=== PATIENT | female | born 1995 | race Caucasian/White ===

== ENCOUNTER 2024-09-19 09:42 | Outpatient (AMB) | payer BC, SELFPAY ==
--- NOTE | 2024-09-19 09:53 | A.OFFPC_ITS ---
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 1. Little interest or pleasure in doing things: not at all 2. Feeling down, depressed, or hopeless: not at all 3. Trouble falling or staying asleep, or sleeping too much: not at all 4. Feeling tired or having little energy: not at all 5. Poor appetite or overeating: not at all 6. Feeling bad about yourself - or that you are a failure or have let yourself or your family down: not at all 7. Trouble concentrating on things, such as reading the newspaper or watching television: not at all 8. Moving or speaking so slowly that other people could have noticed. Or the opposite - being so fidgety or restless that you have been moving around a lot more than usual: not at all 9. Thoughts that you would be better off or of hurting yourself in some way: not at all Total score: 0 Depression Screening Interpretation: Negative Depression Screening Done: Yes 22329 - PHQ-9 Billing: Yes Source: Developed by Drs. Sai Carranza, Sweta Branham, Yemi Beyer and colleagues, with an educational steve from [employer]. Thrive Questionnaire Date Thrive assessed: 09/19/24 I am a: Patient What is your living situation today?: I have a steady place to live Within the past 12 months, did the food you bought not last and you didn't have the money to get more?: I choose not to answer this question Within the past 12 months, did you worry whether your food would run out before you got money to buy more?: I choose not to answer this question Do you have trouble paying for medicines?: I choose not to answer this question Do you have trouble getting transportation to medical appointments?: I choose not to answer this question Do you have trouble paying your heating and electricity bill?: I choose not to answer this question Do you have trouble taking care of your child, family member or friend?: I choose not to answer this question Do you have trouble with day-to-day activities such as bathing, preparing meals, shopping, managing finances, etc.?: I choose not to answer this question Are you currently unemployed and looking for a job?: I choose not to answer this question Are you interested in more education?: I choose not to answer this question Please select the resources that you would like help with: None Currently or been in a relationship where the following occur: No concerns reported THRIVE Score: 0 AUDIT C Alcohol Use Questionnaire (AUDIT-C) 1. How often do you have a drink containing alcohol?: Monthly or less 2. How many drinks containing alcohol do you have on a typical day when you are drinking?: 1 or 2 3. How often do you have six or more drinks on one occasion?: Never Total Score: 1 KODY-7 AMB Questionnaire KODY-7 Date KODY - 7 assessed: 09/19/24 Feeling nervous, anxious, or on edge: 0 = Not at all Not being able to stop or control worryin = Not at all Worrying too much about different things: 0 = Not at all Trouble relaxin = Not at all Being so restless that it is hard to sit still: 0 = Not at all Becoming easily annoyed or irritable: 0 = Not at all Feeling afraid as if something awful might happen: 0 = Not at all Total KODY-7 score (0-4 normal; 5-9 mild; 10-14 moderate; 15-21 severe): 0 Source: Developed by Drs. Sai Carranza, Sweta Branham, Yemi Beyer and colleagues, with an educational steve from [employer]. KODY-7 Assessment Billing KODY-7 Assessment Tool: KODY-7 Assessment 09489 Physical exam (Primary Care) Depression Screening Interpretation: Negative Currently or been in a relationship where the following occur: No concerns reported Coding Additional Codes PHQ-9 - 78717 - PHQ-9 Billing: Yes ([id number]) KODY-7 Assessment Billing - KODY-7 Assessment Tool: KODY-7 Assessment 93406 ([id number])
--- NOTE | 2024-09-19 09:55 | A.OFFPC_ITS ---
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 Was following with [facility]. BH: On lexapro, adderall, lorazepam. [facility]. Sees dermatology: Sees [facility] in [place]. Sees weight management clinic at [place]. on zepbound Sees screener operator-[facility] in [place]. On ocella ROS CONSTITUTIONAL: Denies weight loss, fever and chills. HEENT: Denies changes in vision and hearing. RESPIRATORY: Denies SOB and cough. CV: Denies palpitations and CP GI: Denies abdominal pain, nausea, vomiting and diarrhea. : Denies dysuria and urinary frequency. MSK: Denies new myalgia and joint pain. SKIN: Denies rash and pruritus. NEUROLOGICAL: Denies headache PSYCHIATRIC: Denies recent changes in mood. PHYSICAL EXAM: GENERAL: Alert and oriented x 3. NAD EYES: EOMI. Anicteric. HENT: Moist mucous membranes. No scleral icterus. No cervical lymphadenopathy. LUNGS: Clear to auscultation bilaterally. CARDIOVASCULAR: Regular rate and rhythm. No murmur. No JVD. ABDOMEN: Soft, non-tender +bs EXTREMITIES: No edema. Non-tender. SKIN: No rashes or lesions. Warm. NEUROLOGIC: No focal neurological deficits. CN II-XII grossly intact PSYCHIATRIC: Cooperative. 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 1. Little interest or pleasure in doing things: not at all 2. Feeling down, depressed, or hopeless: not at all 3. Trouble falling or staying asleep, or sleeping too much: not at all 4. Feeling tired or having little energy: not at all 5. Poor appetite or overeating: not at all 6. Feeling bad about yourself - or that you are a failure or have let yourself or your family down: not at all 7. Trouble concentrating on things, such as reading the newspaper or watching television: not at all 8. Moving or speaking so slowly that other people could have noticed. Or the opposite - being so fidgety or restless that you have been moving around a lot more than usual: not at all 9. Thoughts that you would be better off or of hurting yourself in some way: not at all Total score: 0 Depression Screening Interpretation: Negative Depression Screening Done: Yes 66317 - PHQ-9 Billing: Yes Source: Developed by Drs. Sai Carranza, Sweta Branham, Yemi Beyer and colleagues, with an educational steve from [employer]. Thrive Questionnaire Date Thrive assessed: 09/19/24 I am a: Patient What is your living situation today?: I have a steady place to live Within the past 12 months, did the food you bought not last and you didn't have the money to get more?: I choose not to answer this question Within the past 12 months, did you worry whether your food would run out before you got money to buy more?: I choose not to answer this question Do you have trouble paying for medicines?: I choose not to answer this question Do you have trouble getting transportation to medical appointments?: I choose not to answer this question Do you have trouble paying your heating and electricity bill?: I choose not to answer this question Do you have trouble taking care of your child, family member or friend?: I choose not to answer this question Do you have trouble with day-to-day activities such as bathing, preparing meals, shopping, managing finances, etc.?: I choose not to answer this question Are you currently unemployed and looking for a job?: I choose not to answer this question Are you interested in more education?: I choose not to answer this question Please select the resources that you would like help with: None Currently or been in a relationship where the following occur: No concerns reported THRIVE Score: 0 AUDIT C Alcohol Use Questionnaire (AUDIT-C) 1. How often do you have a drink containing alcohol?: Monthly or less 2. How many drinks containing alcohol do you have on a typical day when you are drinking?: 1 or 2 3. How often do you have six or more drinks on one occasion?: Never Total Score: 1 KODY-7 AMB Questionnaire KODY-7 Date KODY - 7 assessed: 09/19/24 Feeling nervous, anxious, or on edge: 0 = Not at all Not being able to stop or control worryin = Not at all Worrying too much about different things: 0 = Not at all Trouble relaxin = Not at all Being so restless that it is hard to sit still: 0 = Not at all Becoming easily annoyed or irritable: 0 = Not at all Feeling afraid as if something awful might happen: 0 = Not at all Total KODY-7 score (0-4 normal; 5-9 mild; 10-14 moderate; 15-21 severe): 0 Source: Developed by Drs. Sai Carranza, Sweta Branham, Yemi Beyer and colleagues, with an educational steve from [employer]. ACT Questionnaire In the past 4 weeks, how much of the time did your asthma keep you from getting as much done at work, school or at home?: None of the time During the past 4 weeks, how often have you had shortness of breath?: 3-6 times a week During the past 4 weeks, how often did your asthma symptoms wake you up at night or earlier than usual in the morning?: Not at all During the past 4 weeks, how often have you had to use your rescue inhaler or nebulizer medication?: 2-3 times a week How would you rate your asthma control during the past 4 weeks?: Somewhat controlled ACT Interpretation: Positive Score: 19 Physical exam (Primary Care) Vital Signs: Last Vital Signs Pulse 73 09/19/24 10:05 Resp 14 09/19/24 10:05 BP 116/84 09/19/24 10:05 Pulse Ox 97 09/19/24 10:05 Oxygen Delivery Method Room Air 09/19/24 10:05 BMI result Body Mass Index 35.3 Tobacco/Smoking Status: Tobacco use Status Tobacco use date assessed 09/19/24 09/19/24 10:09 Patient Tobacco Use Status Never used Tobacco 09/19/24 10:09 e-Cigarette/Vaping Use Never Used 09/19/24 10:09 PHQ-9: PHQ-9 Score PHQ-9: Total score 0 09/19/24 10:09 Depression Screening Interpretation: Negative Thrive Assessment: Date of Thrive Assessment Date Thrive assessed 09/19/24 09/19/24 10:09 Currently or been in a relationship where the following occur: No concerns reported Coding Level of Care Code New Pt Level 4 (38480) Complex EM visit Add On G2211 Diagnoses Encounter to establish care Z76.89 Major depressive disorder in partial remission, unspecified whether recurrent F32.4 Major depression recurrence: unspecified whether recurrent Anxiety F41.9 Additional Codes Asthma Control Questionnaire - ACT Interpretation: Positive ([id number]) PHQ-9 - 88401 - PHQ-9 Billing: Yes ([id number]) Assessment & Plan Assessment & Plan (1) Encounter to establish care: Code(s): Z76.89 - Persons encountering health services in other specified circumstances Category: Medical Plan: 29 y/o to establish care. past medical, surgical, social and family history reviewed. (2) Major depress, part remis: Code(s): F32.4 - Major depressive disorder, single episode, in partial remission Category: Medical Qualifiers: Major depression recurrence: unspecified whether recurrent Qualified Code(s): F32.4 - Major depressive disorder, single episode, in partial remission Plan: stable on current medications (3) Anxiety: Code(s): F41.9 - Anxiety disorder, unspecified Category: Medical Plan: stable. continue BH follow up Orders: Orders Comprehensive Met. Panel 09/19/24 F32.4 - Major depressive disorder, single episode, in partial remission, F41.9 - Anxiety disorder, unspecified, L70.9 - Acne, unspecified, Z76.89 - Persons encountering health services in other specified circumstances TSH reflex Free T4 09/19/24 F32.4 - Major depressive disorder, single episode, in partial remission, F41.9 - Anxiety disorder, unspecified, L70.9 - Acne, unspecified, Z76.89 - Persons encountering health services in other specified circumstances Complete Blood Count Auto Diff 09/19/24 F32.4 - Major depressive disorder, single episode, in partial remission, F41.9 - Anxiety disorder, unspecified, L70.9 - Acne, unspecified, Z76.89 - Persons encountering health services in other specified circumstances Hemoglobin A1c 09/19/24 F32.4 - Major depressive disorder, single episode, in partial remission, F41.9 - Anxiety disorder, unspecified, L70.9 - Acne, unspecified, Z76.89 - Persons encountering health services in other specified circumstances Lipid Panel 09/19/24 F32.4 - Major depressive disorder, single episode, in partial remission, F41.9 - Anxiety disorder, unspecified, L70.9 - Acne, unspecified, Z76.89 - Persons encountering health services in other specified circumstances Referrals Dermatology Referral L70.9 - Acne, unspecified
[2024-09-19 10:05] VITALS: BP 116/84; PULSE 73; RESP 14; O2SAT 97; BMI 35.3
--- OUTSIDE RECORDS SUMMARY | 2024-09-19 10:37 | XMS_ITS ---
Author Name [facility] Organization Unknown History of Medication Use Medication Directions Dispensed Refills Start Date End Date Status Zepbound 2.5 mg/0.5 mL subcutaneous pen injector 1 unit every week by sub-q route. 5 active mometasone 0.1 % topical cream PLEASE SEE ATTACHED FOR DETAILED DIRECTIONS 023 completed spironolactone 50 mg tablet TAKE 1 TABLET BY MOUTH TWICE DAILY WITH FOOD FOR ACNE active Albuterol Sulfate HFA 108 (90 Base) MCG/ACT Inhalation Aerosol Solution Albuterol Sulfate HFA 108 (90 Base) MCG/ACT Inhalation Aerosol SolutionINHALE 2 PUFFS BY MOUTH EVERY 4 TO 6 HOURS NEEDED FOR COUGH Quantity: 3 Refills: 1Klaus Blanca Alicea Start : [id number] .5 GM Inhaler 1 completed mometasone 0.1 % topical ointment mometasone 0.1 % topical ointment completed nitrofurantoin monohydrate/macrocrysta ls 100 mg capsule 023 completed Mometasone Furoate 0.1 % External Ointment Mometasone Furoate 0.1 % External OintmentAPPLY SPARINGLY TO AFFECTED AREA TWICE A DAY Quantity: 45 Refills: 0Blanca Daniels M.D. Start : 4 completed tretinoin 0.025 % topical cream active ProAir HFA 108 (90 Base) MCG/ACT AERS ProAir HFA 108 (90 Base) MCG/ACT AERSINHALE 2 PUFFS BY MOUTH EVERY 4 TO 6 HOURS NEEDED FOR COUGH Quantity: 1 Refills: 2KlaBlanca bermudez M.D. Start : [id number] .5 GM Inhaler 3 completed Ketoconazole 2 % External Shampoo Ketoconazole 2 % External Shampoo Refills: 0 Start : [id number] 20 ML Bottle 1 completed calcipotriene 0.005 % topical cream PLEASE SEE ATTACHED FOR DETAILED DIRECTIONS active doxycycline hyclate 100 mg capsule 022 completed penicillin V potassium 500 mg tablet 020 completed dapsone 5 % topical gel APPLY THIN LAYER TO FACE EVERY MORNING FOR ACNE APPLY THIN LAYER TO FACE EVERY MORNING FOR ACNE completed albuterol sulfate HFA 90 mcg/actuation aerosol inhaler INHALE 2 PUFFS INTO THE LUNGS EVERY 4 HOURS NEEDED FOR COUGH OR WHEEZING. active escitalopram 20 mg tablet TAKE 1 TABLET BY MOUTH EVERY DAY 025 completed mometasone 0.1 % topical ointment active escitalopram 10 mg tablet TAKE 1 TABLET BY MOUTH ONCE DAILY (TO EQUAL 15 MG/DAY) 023 completed Clotrimazole-Betamethas one 1-0.05 % External Lotion Clotrimazole-Betam ethasone 1-0.05 % External LotionAPPLY THIN COAT TO AFFECTED AREA TWICE A DAY IN THE MORNING AND IN THE EVENING Quantity: 30 Refills: 2KBlanca davis M.D. Start : [id number] 0 completed Ocella 3 mg-0.03 mg tablet Take 1 tablet every day by oral route. 4 025 active Spironolactone 50 MG Oral Tablet Spironolactone 50 MG Oral Tablet Quantity: 180 Refills: 0 Start : [id number] 2 completed montelukast 10 mg tablet TAKE 1 TABLET BY MOUTH EVERY DAY TAKE 1 TABLET BY MOUTH EVERY DAY completed albuterol sulfate HFA 90 mcg/actuation aerosol inhaler INHALE 2 PUFFS BY MOUTH EVERY 4 TO 6 HOURS NEEDED FOR COUGH INHALE 2 PUFFS BY MOUTH EVERY 4 TO 6 HOURS NEEDED FOR COUGH completed medroxyprogesterone 150 mg/mL intramuscular syringe Inject 1 mL every 3 months by intramuscular route. 1 022 completed None recorded. (No additional sig information) completed Allergies Allergen Reaction Severity Comment Documented Date Source Statu s WHEAT GLUTEN EXTRACT [facility] LACTOSE [facility] GLUTEN [facility] Problems Problem Status Onset Date Problem Type Date of Resoluti on Source Asthma active 2020-03-13 ProblemAct [facility] Psoriasis active 2023-06-23 ProblemAct [facility] Attention deficit hyperactivity disorder active 2023-06-23 ProblemAct [facility] Acne active 2022-04-07 ProblemAct [facility] Depressive disorder active 2023-06-23 ProblemAct [facility] Anxiety active 2023-06-23 ProblemAct [facility] Immunizations Vaccine Date Source Lot Number Status HPV (Gardasil) 07/09/2012 [facility] [id number] completed Meningo (Menactra) 12/01/2014 [facility] [id number] comple hilary DTP - HIB 1997 [facility] completed HIB 08/29/1998 [facility] completed DTaP 02/14/2002 [facility] completed Hepatitis B 1997 [facility] completed MMR 2001 [facility] completed DTaP 08/29/1998 [facility] completed [employer] TV COVID-19 Vac c 30 MCG/0.3ML Intramuscular Suspension 09/12/2020 [facility] [id number] complet ed Varicella 02/17/2008 [facility] completed Typhoid 07/11/2016 [facility] [id number] completed Varicella 02/12/1998 [facility] completed OPV 1997 [facility] completed OPV 02/11/1999 [facility] completed OPV 1997 [facility] completed Hepatitis B 1997 [facility] completed DTP - HIB 1997 [facility] completed Hepatitis A 07/09/2012 [facility] [id number] completed MMR 05/15/1998 [facility] completed Meningo (Menomune) 02/17/2008 [facility] comple hilary Hepatitis B 1997 [facility] completed Hepatitis A 09/02/2013 [facility] [id number] completed DTP - HIB 1997 [facility] completed Tdap (Adacel) 07/01/2019 [facility] [id number] completed Tdap 02/17/2008 [facility] completed IPV 02/14/2002 [facility] completed
--- OUTSIDE RECORDS SUMMARY | 2024-09-19 10:37 | XMS_ITS | Clinical Summary ---
Author Organization [facility] Address [address] [place] [address] Care Team Providers Care Electronics Inspector Name Role Phone Blanca Daniels MD Primary Care Provider Blanca Ariza MD Unavailable Unavailable Medications loratadine (CLARITIN) 10 MG tablet 1-2 tabs PRN allergies 60 0 2 Active Albuterol (ProAir HFA) 90 mcg/ACT inhaler INHALE 2 PUFFS BY MOUTH EVERY 4 TO 6 HOURS NEEDED FOR COUGH 1 2 3 Active Mometasone Furoate (ELOCON) 0.1 % ointment APPLY SPARINGLY TO AFFECTED AREA TWICE A DAY 45 0 4 Active Clotrimazole-Be tamethasone (LOTRISONE) lotion APPLY THIN COAT TO AFFECTED AREA TWICE A DAY IN THE MORNING AND IN THE EVENING 30 2 9 Active montelukast (SINGULAIR) 10 MG tablet TAKE 1 TABLET BY MOUTH EVERY DAY 90 0 0 Active Albuterol (PROVENTIL HFA;VENTOLIN HFA) 90 mcg/ACT inhaler INHALE 2 PUFFS BY MOUTH EVERY 4 TO 6 HOURS NEEDED FOR COUGH 3 1 1 Active KETOCONAZOLE, TOPICAL, (NIZORAL) 2 % shampoo 0 1 Active Clobetasol Propionate (TEMOVATE) 0.05 % external solution 0 1 Active Triamcinolone Acetonide (KENALOG) 0.1 % cream 0 1 Active Escitalopram Oxalate (LEXAPRO) 10 MG tablet TAKE 1+1/2 TABLETS DAILY. TOTAL 15MG DAILY Managed by psych 0 2 Active Spironolactone (ALDACTONE) 50 MG tablet 180 0 2 Active NORGESTIMATE-ET HINYL ESTRADIOL (Tri-Estarylla) 0.18/0.215/0.25 MG-35 MCG per tablet 84 0 2 Active Calcipotriene (DOVONOX) 0.005 % cream 60 0 2 Active Mometasone Furoate (ELOCON) 0.1 % cream 15 0 2 Active Active Problems Problem Noted Date Diagnosed Date Psoriasis 08/20/2021 Overview (08/30/2023): Impression - [id number]: New Dx per derm Acneiform eruption 06/11/2020 Overview (08/30/2023): Impression - [id number]: She presents with abrupt eruption of an acneiform like rash with lesions that are papular with central umbilication but no visible pustules. She does have an appointment to see a dietary supervisor but not until June. I will treat her with doxycycline 100 milligrams p.o. b.i.d. for 10 days. If the rash is not resolved at this time she is continue for another 10 days and at that point taper to 100 milligrams a day going forward until she sees Dermatology. Need for tetanus booster 07/01/2019 Thyroid function test abnormal 06/02/2019 Generalized anxiety disorder 06/02/2019 Overview (08/30/2023): Impression - [id number]: Doing well on Fluoxetine 20mg a day. Continue same and reassess in 6 months. Impression - [id number]: Significantly improved on Lexapro 15 milligrams p.o. q.day going forward she will be managed by her psychiatrist Dr. Mey Nunes. Class 1 obesity due to exces s calories without serious comorbidity with body mass index (BMI) of 31.0 to 31.9 in adult 05/20/2019 Overview (08/30/2023): Transitioned From: Obesity Impression - [id number]: Encouraged to continue with daily exercise and low carb diet. 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 Encounter for Depo-Provera contraception 019 General counseling and advice for contraceptive management 12/14/2018 Screening for STD (sexually transmitted disease) 12/14/2018 Seasonal allergies 12/14/2018 Acne 11/13/2017 Lactose intolerance 11/13/2017 Exercise-induced asthma 06/22/2015 Overview (08/30/2023): Impression - [id number]: As above Impression - [id number]: Stable with prn use of albuterol prior to exercise. Cough variant asthma 07/05/2013 Overview (08/30/2023): Impression - [id number]: Frequent use of rescue inhaler both due to allergies and for exercise-induced asthma. Will start Singulair 10mg a day as controller med. REassess in 6 months. Impression - [id number]: Stable on montelukast with p.r.n. use of albuterol. Montelukast was refilled for 1 year today. Dysmenorrhea 04/09/2012 Immunizations Name Administration Dates Next Due COVID-19, mRNA (Pfizer Pre F all 2022) Monovalent, 30 mcg/0.3 ml 08/11/2021,09/12/2020,08/20/2020 DTP-Hib 1997,1997,1997 DTaP 02/14/2002,08/29/1998 HPV4 (Gardasil 4) 07/09/2012 Hep A - 09/02/2013,07/09/2012 Hep B (adult) 1997,1997,1997 Hib (PRP-OMP) 08/29/1998 IPV 02/14/2002 MMR 2001,05/15/1998 Meningococcal ACWY (Menactra) 12/01/2014 Meningococcal MPSV4 (Menomune) 02/17/2008 OPV 02/11/1999,1997,1997 Tdap 07/01/2019,02/17/2008 Typhoid, ViCPS 07/11/2016 Varicella 02/17/2008,02/12/1998 Family History Medical History Relation Name Comments Asthma Father Asthma : Father Hypertension Father essential hyper tension : Father Cancer - Colon Paternal great-grandmother colon cancer : Paternal Great Grandmother Relation Name Status Comments Father Paternal great-grandmother Social History Tobacco Use Types Packs/Day Years Used Date Smoking Tobacco: Never Assessed Comments:Smoking Status:No c urrent tobacco use Comments Unknown Sex and Gender Information Value Date Recorded Sex Assigned at Not on file Legal Sex Female 6:21 PM EDT Gender Identity Not on file Sexual Orientation Not on file Last Filed Vital Signs Vital Sign Reading Time Taken Comments Blood Pressure 120/80 10/17/2021 8:49 AM EDT RUE/Sitting RUE/Sitting Pulse 95 10/17/2021 8:49 AM EDT Temperature 37.1 ??C (98.8 ??F) 10/17/2021 8 :49 AM EDT Temporal Respiratory Rate 14 10/17/2021 8:49 AM EDT Oxygen Saturation 98% 10/17/2021 8:4 9 AM EDT Inhaled Oxygen Concentration - - Weight 94.3 kg (207 lb 12.9 oz) 10/17/2021 8:49 AM EDT Height 160 cm (5' 3 ) 10/17/2021 8:49 AM EDT Body Mass Index 36.81 10/17/2021 8:49 AM EDT Plan of Treatment Health Maintenance Due Date Last Done Comments Hepatitis C Screening 1997 HPV Vaccine (2 - 3-dose series) 08/06/2012 2 Pap Smear 2013 Pneumococcal (1 of 2 - PCV) 02/11/2016 COVID-19 Vaccine (2023-2 5 season) 2024 08/11/2021, 09/12/2020, 08/20/2020 Influenza (#1) 2024 DTaP/Tdap/Td (8 - Td or Tdap) 07/01/2029, 02/17/2008, 02/14/2002, Additional history exists Zoster (Shingrix) (1 of 2) 2047 02/17/2008, Hep B Completed 1997, 03/27, 1997 Hib Completed 08/29/1998, 07/28, 1997, Additional history exists Hep A Completed 09/02/2013, 07/09/2012 Meningococcal ACWY Completed 12/01/2014, 02/17/2008 LDL Cholesterol Discontinued 11/08/2016 Physical Discontinued 08/20/2021, 03/27, 06/16/2018, Additional history exists Procedures Procedure Name Priority Date/Time Associated Diagnosis Comments LIPID PANEL, PLASMA Routine 11/08/2016 7 :13 AM EDT from Last 3 Months or Most Recently Relevant to Health Maintenance Results * (ABNORMAL) LIPID PANEL, PLASMA (11/08/2016 7:13 AM EDT) Cholesterol 162 0 - 199 mg/dL [facility] CONVERSIONS Triglyceride 124 0 - 150 mg/dL [facility] CONVERSIONS VLDL Cholesterol 25 5 - 40 mg/dL [facility] CONVERSIONS HDL Cholesterol 86(H) 50 - 80 mg/dL [facility] CONVERSIONS LDL Cholesterol 51 0 - 100 mg/dL [facility] CONVERSIONS Cholesterol Non-HDL 76 0 - 130 mg/dl PH[facility] CONVERSIONS CHOL/HDL Ratio 1.9 PHCT CONVERSIONS 11/08/2016 7:13 AM EDT Narrative PHCT CONVERSIONS - 11/08/2016 5:22 PM EDT FASTING: YES Testing Performed at: [facility], [address] [place] [address], , Resident Surgeon: Patti Coburn MD CLPOL#[id number] Jazmin Pinzon MD LABORATORY Final Result PHCT CONVERSIONS from Last 3 Months or Most Recently Relevant to Health Maintenance Care Teams Electronics Inspector Relationship Specialty Start Date End Date Blanca Daniels MD PCP - General 03/02/23 Blanca Daniels MD PCP - Backup PCP Internal Medicine 08/27/23
--- OUTSIDE RECORDS SUMMARY | 2024-09-19 10:37 | XMS_ITS | Clinical Summary ---
Author Organization [address] [facility] Address [address] [place] [address] Phone Care Team Providers Care Geophysical Data Technician Name Role Phone Dior Chow MD Primary Care Provider [phone] Allergies Active Allergy Reactions Criticality Noted Date Comments Lactose GI intolerance,Palpitations 02/24/19 97 Medications albuterol HFA (PROAIR HFA ; PROVENTIL HFA ; VENTOLIN HFA) 90 mcg/actuation inhaler Inhale 2 Puffs into the lungs every 4 hours as needed for Cough or Wheezing. 09/07/2023 Active escitalopram (LEXAPRO) 20 mg tablet Take 1 tablet (20 mg total) by mouth 1 (one) time each day. Active dextroamphetami ne/amphetamine (ADDERALL XR ORAL) Take by mouth. Active loratadine 10 mg capsule Take by mouth. Active spironolactone (ALDACTONE) 50 mg tablet Take 1 Tablet by mouth daily. Take 1-2 tabs daily Active tirzepatide, weight loss, (Zepbound) 2.5 mg/0.5 mL injection INJECT 2.5MG UNDER THE SKIN ONCE EVERY 7 DAYS 2 mL 08/16/2024 Active ondansetron (ZOFRAN) 4 mg tablet Take 1 tablet (4 mg total) by mouth every 8 (eight) hours if needed for nausea or vomiting for up to 12 doses. 12 tablet 2 08/19/2024 Active Active Problems Problem Noted Date Diagnosed Date Class 2 obesity without seri ous comorbidity with body mass index (BMI) of 39.0 to 39.9 in adult 06/13/2024 Encounters Date Type Department Care Team Description 08/05/2024 Telephone Internal Medicine [facility] [address] [facility] [address] [place] [address] Christy Truong PA referral (To Derm) 07/18/2024 Telephone Internal Medicine [facility] [address] [facility] [address] [place] [address] Coleman Slater MD from Last 3 Months Immunizations Name Administration Dates Next Due Pfizer SARS-CoV-2 COVID-19, mRNA, LNP-S, preservative free 08/11/2021,07/23/2021,07/05/2021 Tdap Tetanus diptheria acell ular pertussis (Boostrix; Adacel) 7yo and older 06/26/2019 Surgical History Surgery Date Site/Laterality Comments OTHER SURGICAL HISTORY 2018 Left PROCEDURE: [place] ANESTH DIAGNOSTIC ARTHROSCOPIC PROC KNEE JOINT WISDOM TOOTH EXTRACTION 2019 PROCEDURE: HISTORICAL WISDOM TEETH EXTRACTION Medical History Medical History Date Comments Mild intermittent asthma, uncomplicated DX:Mild intermittent asthma, uncomplicated Anxiety and depression DX:Anxiet y and depression Family History Medical History Relation Name Comments Alcohol/Drug Father Diabetes Father Hypertension Father Prostate cancer Paternal Grandfather Alcohol/Drug Sister Relation Name Status Comments Father Paternal Grandfather Sister Social History Tobacco Use Types Packs/Day Years Used Date Smoking Tobacco: Never Smokeless Tobacco: Never Alcohol Use Standard Drinks/Week Comments Yes 0 (1 standard drink = 0.6 oz pur e alcohol) Comments Unknown Sex and Gender Information Value Date Recorded Sex Assigned at Female 06/01/2024 12:00 PM EST Legal Sex Female 11:35 AM EST Gender Identity Female 06/01/2024 12:00 PM EST Sexual Orientation Straight 06/01/2024 12 :00 PM EST Obstetrics History Last Filed Vital Signs Vital Sign Reading Time Taken Comments Blood Pressure 143/80 06/13/2024 11:04 AM EST Pulse 73 06/13/2024 11:04 AM EST Temperature 36.6 ??C (97.8 ??F) 06/13/2024 11:[address] Respiratory Rate - - Oxygen Saturation - - Inhaled Oxygen Concentration - - Weight 97.1 kg (214 lb) 06/13/2024 11:04 AM EST Height 157.5 cm (5' 2 ) 06/13/2024 11:04 AM EST Body Mass Index 39.14 06/13/2024 11:04 AM EST Plan of Treatment Upcoming Encounters Date Type Department Care Team (Late st Contact Info) Description 11/15/2024 8:15 AM EDT Office Visit Bariatric Surgery - [place] [address] [place] [address] Sushma Carlos MD [address] [place] [address] Health Maintenance Due Date Last Done Comments HPV Vaccines (2 - 3-dose series) 08/06/2012 07/09/2012 Pneumococcal Vaccine: Pediatrics (0 to 5 Years) and At-Risk Patients (6 to 64 Years) (1 of 2 - PCV) 02/11/2016 Cholesterol Screening (Lipid Panel) 06/24/2022 Depression Screening 06/24/2022 HIV Screening 06/24/2022 Hepatitis C Screening 06/24/2022 Social Influencers of Health Screening 06/24/2022 COVID-19 Vaccine ( season) 2024 08/11/2021, 07/23/2021, 07/05/2021, Additional history exists Influenza Vaccine (#1) 2024 Cervical Cancer Screening: Pap Smear 06/25/2026 06/25/2023 DTaP,Tdap,and Td Vaccines (8 - Td or Tdap) 06/26/2029 06/26/2019, 02/17/2008, 02/14/2002, Additional history exists Hepatitis B Vaccines Completed 1997, 1997, 1997 HIB Vaccines Completed 08/29/1998, 07/28, 1997, Additional history exists MMR Vaccines Completed 2001, 05/15/1998 IPV Vaccines Completed 02/14/2002, 01/24, 1997, Additional history exists Varicella Vaccines Completed 02/17/2008, 02/12/1998 Hepatitis A Vaccines Completed 09/02/2013, 07/09/20 12 Meningococcal ACWY Vaccine Completed 12/01/2014, Meningococcal B Vacine Aged Out No lo nger eligible based on patient's age to complete this topic RSV Immunization Patients Under 20 months Aged Out No longer eligible based on patient's age to complete this topic Procedures Procedure Name Priority Date/Time Associated Diagnosis Comments PAP SMEAR Routine 06/25/2023 from Last 3 Months or Most Recently Relevant to Health Maintenance Results * Hm Pap Smear (06/25/2023) HM Pap smear No interpretation , Abstracted Historical Provider HEALTH MAINTENANCE Final Result from Last 3 Months or Most Recently Relevant to Health Maintenance Insurance [facility] Care Teams Geophysical Data Technician Relationship Specialty Start Date End Date Dior Chow MD [address] [place] [address] PCP - General Internal Medicine 07/18/24
--- OUTSIDE RECORDS SUMMARY | 2024-09-19 10:37 | XMS_ITS | Clinical Summary ---
Author Organization [facility] Address [address] [place] [address] Care Team Providers Care Manager Agriculture Name Role Phone Jazmin Pinzon MD Primary Care Provider [phone] Allergies No known active allergies Encounters Date Type Department Care Team Description 08/02/2024 Orders Only [address] [place] [address] Ariane Mackay MD from Last 3 Months Social History Tobacco Use Types Packs/Day Years Used Date Smoking Tobacco: Never Assessed Sex and Gender Information Value Date Recorded Sex Assigned at Not on file Gender Identity Not on file Sexual Orientation Not on file Last Filed Vital Signs Vital Sign Reading Time Taken Comments Blood Pressure 146/87 05/15/2018 11:10 AM EDT Pulse 107 05/15/2018 11:10 AM EDT Temperature 37.6 ??C (99.6 ??F) 05/15/2018 11:10 AM E DT Respiratory Rate 18 05/15/2018 11:10 AM EDT Oxygen Saturation 97% 05/15/2018 11:10 AM EDT Inhaled Oxygen Concentration - - Weight - - Height - - Body Mass Index - - Plan of Treatment Health Maintenance Due Date Last Done Comments Hepatitis C Virus Screening 1997 HIV Screening 2010 DTaP/Tdap/Td Vaccines (1 - Tdap) 02/11/2016 Hepatitis B Vaccines (1 of 3 - 19+ 3-dose series) 02/11/2016 Influenza Vaccine 02/25/2024 COVID-19 Vaccine ( - 2023-2 5 season) 2024 Pap Smear (Ages 21-65) 08/02/2027 , 01/31/2021 HPV Vaccines Aged Out No longer eligi ble based on patient's age to complete this topic Pneumococcal Vaccine: Pediatric (0-5 Years) and At-Risk Patients (6 to 49 Years) Aged Out No longer eligible b ased on patient's age to complete this topic Procedures Procedure Name Priority Date/Time Associated Diagnosis Comments THINPREP PAP TEST (WATERSHED TENDER) WITH HPV REFLEX Routine 08/02/2024 12:00 AM EST from Last 3 Months Results * ThinPrep Pap Test (Hostel Parent) with HPV Reflex (08/02/2024 12:00 AM EST) Clinical Information [facility] Comment:None given LMP: [facility] Comment:NONE GIVEN Previous PAP: [facility] Comment:NONE GIVEN Previous Biopsy QUES T OLGA SANABRIA Comment:NONE GIVEN Source: [facility] Comment:Cervix Statement of Adequacy: [facility] Comment: Satisfactory for evaluation. Endocervical/transformation zone component present. Interpretation/Resul t: [facility] Comment: Cytology Results: Negative for intraepithelial lesion or malignancy. Comment: [facility] Comment: This Pap test has been evaluated with computer assisted technology. Thermoscrew Operator: EKATERINA SANABRIA Comment: BLM, CT (ASCP) CT Screening Location: [place] [address] Slide preparation performed at: ??[facility], [address] [place] [id number] CLIA No. [id number] Comment [facility] [employer] SANABRIA Comment: EXPLANATORY NOTE: The Pap is a screening test for cervical cancer. It is not a diagnostic test and is subject to false negative and false positive results. It is most reliable when a satisfactory sample, regularly obtained, is submitted with relevant clinical findings and history, and when the Pap result is evaluated along with historic and current clinical information. 08/02/2024 08/04/2024 3:3 3 AM EST Ariane Mackay MD PATHOLOGY/CYTOLOGY O RDERABLES [facility] [address] [address], from Last 3 Months Care Teams Manager Agriculture Relationship Specialty Start Date End Date Jazmin Pinzon MD [address] [place] [address] PCP - General 04/12/14
== END 2024-09-19 10:29 | disposition home or self-care (01) ==
PROVIDERS: PCP Internal Medicine; Visit Provider Internal Medicine
DX: Z76.89 Persons encountering health services in other specified circumstances (principal); F32.4 Major depressive disorder, single episode, in partial remission; F41.9 Anxiety disorder, unspecified

== ENCOUNTER → 2024-09-19 09:42 | Outpatient (BNVA) | payer BC, SELFPAY | PROVIDERS: PCP Internal Medicine; Visit Provider Internal Medicine | DX: Z76.89 Persons encountering health services in other specified circumstances (principal); F32.4 Major depressive disorder, single episode, in partial remission; F41.9 Anxiety disorder, unspecified; Z79.899 Other long term (current) drug therapy | CPT/HCPCS: 96127; 96160 ==